=== PATIENT | female | born 1975 | race African-American/Black ===

== ENCOUNTER 2018-02-25 15:16 | Emergency (ER) | payer OTHER, MEDICAID ==
[~2018-02-25] VITALS: Ht 175.3 cm; Wt 74.4 kg
[~2018-02-25 15:16] MED LIST: ADVAIR 500-501 EACH; ADVAIR 500-501 EACH IH; ALBUTEROL INH; ALBUTEROL2.5 MG/32 IH; ALLOPURINOL 30300 M1 PO; AMOXICILLIN 50500 MG PO; AMOXICILLIN875 MG PO; ANTIPYRINE-BENZ10 ML OT; ASPIRIN EC81 M1 PO; ATIVAN0.5 MG; ATIVAN0.5 MG PO; AUGMENTIN 875-1 EACH PO; AUGMENTIN 875875 M1 PO; AUGMENTIN 875875 MG PO; AZITHROMYCIN 2250 MG PO; BENEPROTEIN; BUTALB-APAP-CA1 EACH PO; CALCIUM CARBON260 MG PO; CELEXA; CELEXA40 MG PO; CHERACOL COUGH120 ML PO; CLARITIN10 MG PO; DEPAKOTE250 MG; DIFLUCAN150 M1 PO; DIFLUCAN200 MG PO; FLAGYL500 MG PO; FLONASE 0.05%50 MCG NS; FLORASTOR250 MG PO; GABAPENTIN; GUAIFENESIN WI120 ML PO; HYDROCODON-ACE1 EACH PO; HYDROCODONE-APA1 TA1 PO; IMDUR 30 MG TAB30 M1 PO; IRON159 MG; KEFLEX250 MG PO; KEFLEX500 MG PO; LABETALOL 100100 MG PO; LEVOTHROID150 MCG PO; LEXAPRO; LEXAPRO20 MG PO; LIDODERM 5%1 PATCH TOP; MECLIZINE 25 MG25 M1 PO; MECLIZINE HCL25 M1 PO; MECLIZINE HCL25 MG PO; MEDROLDOSEPACK PO; NEURONTIN 300300 M1 PO; PREDNISONE 20 M20 M1 PO; PREDNISONE 20 M20 MG PO; PREDNISONE50 MG PO; PRILOSEC40 MG PO; PROAIR HFA8.5 GM IH; PROMETHAZINE-D120 ML PO; PROTONIX40 M2 PO; PROVENTIL HFA6.7 G1 INH; PROVERA10 MG PO; SCOPOLAMINE1 EACH TRANSDERM; SINGULAIR; SINGULAIR 10 MG10 M1; TESSALON PERLE100 MG PO; TRAMADOL 50 MG50 MG; TRINATE TABLET1 TAB; TRINATE TABLET1 TAB PO; VENTOLIN HFA 1818 GM INH; VITAMIN B-12500 MCG PO; VITAMIN D3400 UNIT PO; VITAMIN D400 UNI1 PO; XANAX 0.5 MG0.5 M1 PO; ZOCOR 20 MG TAB20 M1 PO; ZOFRAN ODT4 MG PO; ZPAK PO; [UNRECOGNIZED DRUG - CODE] SC
[2018-02-25 15:37] VITALS: BP 123/74
[2018-02-25 15:41] LABS: URINE BILIRUBIN NEGATIVE (Negative); URINE BLOOD 1+ (Negative); URINE CLARITY CLEAR; URINE COLOR YELLOW; URINE GLUCOSE-RANDOM NEGATIVE (Negative); URINE KETONES NEGATIVE (Negative); URINE LEUKOCYTES-REFLEX 1+ (Negative); URINE NITRITE-REFLEX NEGATIVE (Negative); URINE PROTEIN 1+ (Negative); URINE SPECIFIC GRAVITY >= 1.030 (1.005-1.030); URINE UROBILINOGEN 0.2 E.U./dl (0.2-1.0)
[2018-02-25 15:48] LABS: MUCUS >6 Heavy strn/LPF (None Seen); SQUAMOUS >10 Many /LPF (0-3)
[2018-02-25 15:50] LABS: BACTERIA-REFLEX 1-9 Few /HPF (None Seen); URINE WBC-REFLEX >25 Many /HPF (0-5)
[2018-02-25 15:51] LABS: CASTS None Seen /LPF (None Seen); CRYSTALS None Seen /LPF (None Seen); URINE RBC 0-2 Rare /HPF (0-2)
[2018-02-25] MEDS ORDERED: MACROBID 100 M100 M1 PO (15:55)
== END 2018-02-25 15:59 | disposition home or self-care (01) ==
LOC: M.ERS 15:16
PROVIDERS: Nurse Practitioner Family
DX: N39.0 Urinary tract infection, site not specified (principal); R31.9 Hematuria, unspecified; J45.909 Unspecified asthma, uncomplicated; F32.9 Major depressive disorder, single episode, unspecified; F41.9 Anxiety disorder, unspecified; G36.0 Neuromyelitis optica [Devic]; Z98.890 Other specified postprocedural states; Z86.2 Personal history of diseases of the blood and blood-forming organs and certain disorders involving the immune mechanism; Z88.6 Allergy status to analgesic agent; Z88.5 Allergy status to narcotic agent; Z88.2 Allergy status to sulfonamides; Z88.8 Allergy status to other drugs, medicaments and biological substances

== ENCOUNTER 2018-04-04 21:07 | Emergency (ER) | payer OTHER, MEDICAID ==
[~2018-04-04] VITALS: Ht 175.3 cm; Wt 74.8 kg
[~2018-04-04 21:07] MED LIST changes: +MACROBID 100 M100 M1 PO
[2018-04-04] MEDS ORDERED: MEDROLDOSEPACK PO (21:57)
[2018-04-04 22:05] VITALS: BP 107/82
== END 2018-04-04 22:05 | disposition home or self-care (01) ==
LOC: M.ERS 21:07
DX: J02.9 Acute pharyngitis, unspecified (principal); J34.89 Other specified disorders of nose and nasal sinuses; J45.909 Unspecified asthma, uncomplicated; F32.9 Major depressive disorder, single episode, unspecified; F41.9 Anxiety disorder, unspecified; Z86.2 Personal history of diseases of the blood and blood-forming organs and certain disorders involving the immune mechanism; Z88.6 Allergy status to analgesic agent; Z88.5 Allergy status to narcotic agent; Z88.2 Allergy status to sulfonamides; Z88.8 Allergy status to other drugs, medicaments and biological substances

== ENCOUNTER 2018-05-27 23:28 | Emergency (ER) | payer OTHER, MEDICAID ==
[~2018-05-27] VITALS: Ht 175.3 cm; Wt 74.4 kg
[2018-05-27] MEDS ORDERED: SINGULAIR 10 MG10 M1 PO (23:44)
[2018-05-27] MEDS ORDERED: LEXAPRO 10 MG T10 M2 PO (23:44)
[2018-05-28 00:23] LABS: URINE BILIRUBIN NEGATIVE (Negative); URINE BLOOD NEGATIVE (Negative); URINE CLARITY CLEAR; URINE COLOR YELLOW; URINE GLUCOSE-RANDOM NEGATIVE (Negative); URINE KETONES TRACE (Negative); URINE LEUKOCYTES-REFLEX NEGATIVE (Negative); URINE NITRITE-REFLEX NEGATIVE (Negative); URINE PROTEIN TRACE (Negative); URINE SPECIFIC GRAVITY 1.025 (1.005-1.030)
[2018-05-28] MEDS ORDERED: ACETAMINOPHEN-1 EAC1 PO (03:43)
[2018-05-28] MEDS ORDERED: KEFLEX500 M1 PO (03:43)
[2018-05-28 03:51] VITALS: BP 112/68
== END 2018-05-28 03:51 | disposition home or self-care (01) ==
LOC: M.ERS 23:28
PROVIDERS: Emergency Medicine
DX: N83.201 Unspecified ovarian cyst, right side (principal); R39.15 Urgency of urination; J45.909 Unspecified asthma, uncomplicated; F32.9 Major depressive disorder, single episode, unspecified; F41.9 Anxiety disorder, unspecified; Z98.890 Other specified postprocedural states; Z86.2 Personal history of diseases of the blood and blood-forming organs and certain disorders involving the immune mechanism; Z88.5 Allergy status to narcotic agent; Z88.6 Allergy status to analgesic agent; Z88.2 Allergy status to sulfonamides; Z88.8 Allergy status to other drugs, medicaments and biological substances

== ENCOUNTER 2018-09-23 16:36 | Emergency (ER) | payer OTHER, MEDICAID ==
[~2018-09-23] VITALS: Ht 175.3 cm; Wt 72.6 kg
[~2018-09-23 16:36] MED LIST changes: +ACETAMINOPHEN-1 EAC1 PO; +KEFLEX500 M1 PO; +LEXAPRO 10 MG T10 M2 PO; +SINGULAIR 10 MG10 M1 PO
[2018-09-23] MEDS ORDERED: VITAMIN D3400 UNIT PO (16:48)
[2018-09-23] MEDS ORDERED: PRENATAL PLUS1 EAC5 PO (16:48)
[2018-09-23] MEDS ORDERED: ATIVAN0.5 MG PO (16:49)
[2018-09-23] MEDS ORDERED: DEPAKOTE125 MG PO (16:50)
[2018-09-23 17:18] LABS: URINE BILIRUBIN NEGATIVE (Negative); URINE BLOOD NEGATIVE (Negative); URINE CLARITY CLEAR; URINE COLOR YELLOW; URINE GLUCOSE-RANDOM NEGATIVE (Negative); URINE KETONES NEGATIVE (Negative); URINE LEUKOCYTES-REFLEX NEGATIVE (Negative); URINE NITRITE-REFLEX NEGATIVE (Negative); URINE PROTEIN NEGATIVE (Negative); URINE UROBILINOGEN 0.2 E.U./dl (0.2-1.0)
[2018-09-23] MEDS ORDERED: FLAGYL500 M1 PO (17:23)
[2018-09-23 17:32] VITALS: BP 116/67
== END 2018-09-23 17:33 | disposition home or self-care (01) ==
LOC: M.ERS 16:36
PROVIDERS: Nurse Practitioner Family
DX: N76.0 Acute vaginitis (principal); B96.89 Other specified bacterial agents as the cause of diseases classified elsewhere; J45.909 Unspecified asthma, uncomplicated; F32.9 Major depressive disorder, single episode, unspecified; F41.9 Anxiety disorder, unspecified; Z98.890 Other specified postprocedural states; Z86.2 Personal history of diseases of the blood and blood-forming organs and certain disorders involving the immune mechanism; Z88.2 Allergy status to sulfonamides; Z88.6 Allergy status to analgesic agent; Z88.8 Allergy status to other drugs, medicaments and biological substances

== ENCOUNTER 2018-11-16 22:09 | Emergency (ER) | payer OTHER, MEDICAID ==
[~2018-11-16] VITALS: Ht 175.3 cm; Wt 75.8 kg
[~2018-11-16 22:09] MED LIST changes: +DEPAKOTE125 MG PO; +FLAGYL500 M1 PO; +PRENATAL PLUS1 EAC5 PO
[2018-11-16] MEDS ORDERED: IBUPROFEN 800800 M1 PO (22:21)
[2018-11-16 23:24] LABS: ABSOLUTE EOSINOPHILS 0.2 thou/uL (0.0-0.7); ABSOLUTE LYMPHOCYTES 1.3 thou/uL (0.8-5.3); ABSOLUTE MONOCYTES 0.4 thou/uL (0.0-1.2); ABSOLUTE NEUTROPHILS 2.8 thou/uL (1.6-8.1); BASOPHILS 0.4 %; EOSINOPHILS 3.6 %; HEMATOCRIT 41.6 % (37.0-47.0); LYMPHOCYTES 27.1 %; MCH 31.1 pg (26.0-34.0); MCHC 33.6 g/dL (28.0-37.0); MCV 92.4 fL (80.0-100.0); MPV 9.4 fl. (7.2-11.1); NUCLEATED RBCS 0 /100WBC; PLATELET COUNT* 359 thou/uL (150-400); POLYS 59.9 %; RDW-CV 14.1 % (10.5-14.5); WBC 4.8 thou/uL (4.0-11.0)
[2018-11-16 23:43] LABS: CALCIUM 10.3 mg/dL (8.5-10.1); CREATININE 0.8 mg/dL (0.6-1.3); POTASSIUM 3.3 mmol/L (3.5-5.1)
[2018-11-16 23:47] LABS: ALBUMIN 3.5 g/dL (3.4-5.0); TOTAL BILIRUBIN 0.6 mg/dL (<0.1-1.0); TOTAL PROTEIN 7.2 g/dL (6.4-8.2)
[2018-11-17 00:54] VITALS: BP 120/80
== END 2018-11-17 00:55 | disposition short-term general hospital (02) ==
LOC: M.ERS 22:09
PROVIDERS: Emergency Medicine
DX: N99.2 Postprocedural adhesions of vagina (principal); R42 Dizziness and giddiness; J45.909 Unspecified asthma, uncomplicated; F32.9 Major depressive disorder, single episode, unspecified; F41.9 Anxiety disorder, unspecified; Z88.6 Allergy status to analgesic agent; Z88.2 Allergy status to sulfonamides; Z88.8 Allergy status to other drugs, medicaments and biological substances; Z98.890 Other specified postprocedural states; Z86.2 Personal history of diseases of the blood and blood-forming organs and certain disorders involving the immune mechanism

== ENCOUNTER 2019-02-18 14:45 | Emergency (ER) | payer OTHER, MEDICAID ==
[~2019-02-18] VITALS: Ht 175.3 cm; Wt 76.7 kg
[~2019-02-18 14:45] MED LIST changes: +IBUPROFEN 800800 M1 PO
[2019-02-18] MEDS ORDERED: NEURONTIN600 MG PO (14:54)
[2019-02-18 15:44] LABS: ABSOLUTE EOSINOPHILS 0.1 thou/uL (0.0-0.7); ABSOLUTE LYMPHOCYTES 1.2 thou/uL (0.8-5.3); ABSOLUTE MONOCYTES 0.5 thou/uL (0.0-1.2); ABSOLUTE NEUTROPHILS 1.8 thou/uL (1.6-8.1); BASOPHILS 0.6 %; EOSINOPHILS 2.6 %; HEMATOCRIT 38.5 % (37.0-47.0); HEMOGLOBIN 12.7 gm/dL (12.0-15.0); LYMPHOCYTES 33.9 %; MCH 28.9 pg (26.0-34.0); MCHC 32.8 g/dL (28.0-37.0); MCV 87.9 fL (80.0-100.0); MONOCYTES 12.5 %; MPV 9.3 fl. (7.2-11.1); NUCLEATED RBCS 0 /100WBC; PLATELET COUNT* 225 thou/uL (150-400); POLYS 50.4 %; RBC 4.38 mil/uL (4.20-5.00); RDW-CV 16.6 % (10.5-14.5); WBC 3.6 thou/uL (4.0-11.0)
[2019-02-18 15:59] LABS: ALBUMIN 3.4 g/dL (3.4-5.0); CALCIUM 9.9 mg/dL (8.5-10.1); CREATININE 0.8 mg/dL (0.6-1.3); POTASSIUM 3.7 mmol/L (3.5-5.1); TOTAL BILIRUBIN 0.6 mg/dL (<0.1-1.0); TOTAL PROTEIN 7.3 g/dL (6.4-8.2)
[2019-02-18 16:51] LABS: URINE BILIRUBIN NEGATIVE (Negative); URINE BLOOD NEGATIVE (Negative); URINE CLARITY CLEAR; URINE COLOR YELLOW; URINE GLUCOSE-RANDOM NEGATIVE (Negative); URINE KETONES NEGATIVE (Negative); URINE LEUKOCYTES-REFLEX NEGATIVE (Negative); URINE NITRITE-REFLEX NEGATIVE (Negative); URINE PROTEIN NEGATIVE (Negative); URINE UROBILINOGEN 0.2 E.U./dl (0.2-1.0)
[2019-02-18] MEDS ORDERED: BENTYL 20 MG TA20 M1 PO (17:07)
[2019-02-18 17:18] VITALS: BP 127/67
== END 2019-02-18 17:19 | disposition home or self-care (01) ==
LOC: M.ERS 14:45
PROVIDERS: Nurse Practitioner Family
DX: R35.0 Frequency of micturition (principal); R10.31 Right lower quadrant pain; J45.909 Unspecified asthma, uncomplicated; F32.9 Major depressive disorder, single episode, unspecified; F41.9 Anxiety disorder, unspecified; Z88.6 Allergy status to analgesic agent; Z88.4 Allergy status to anesthetic agent; Z88.5 Allergy status to narcotic agent; Z88.2 Allergy status to sulfonamides; Z88.8 Allergy status to other drugs, medicaments and biological substances; Z98.890 Other specified postprocedural states; Z86.2 Personal history of diseases of the blood and blood-forming organs and certain disorders involving the immune mechanism

== ENCOUNTER 2019-03-15 00:17 | Emergency (ER) | payer OTHER, MEDICAID ==
[~2019-03-15] VITALS: Ht 175.3 cm; Wt 72.6 kg
[~2019-03-15 00:17] MED LIST changes: +BENTYL 20 MG TA20 M1 PO; +NEURONTIN600 MG PO
[2019-03-15 00:52] LABS: URINE BILIRUBIN NEGATIVE (Negative); URINE BLOOD NEGATIVE (Negative); URINE CLARITY CLEAR; URINE COLOR YELLOW; URINE GLUCOSE-RANDOM NEGATIVE (Negative); URINE KETONES TRACE (Negative); URINE LEUKOCYTES-REFLEX NEGATIVE (Negative); URINE NITRITE-REFLEX NEGATIVE (Negative); URINE PROTEIN TRACE (Negative); URINE SPECIFIC GRAVITY >= 1.030 (1.005-1.030); URINE UROBILINOGEN 0.2 E.U./dl (0.2-1.0)
[2019-03-15] MEDS ORDERED: DIFLUCAN200 MG PO (01:01)
[2019-03-15 01:14] VITALS: BP 116/69
== END 2019-03-15 01:14 | disposition home or self-care (01) ==
LOC: M.ERS 00:17
PROVIDERS: Emergency Medicine
DX: B37.3 Candidiasis of vulva and vagina (principal); J45.909 Unspecified asthma, uncomplicated; F32.9 Major depressive disorder, single episode, unspecified; F41.9 Anxiety disorder, unspecified; Z98.890 Other specified postprocedural states; Z88.2 Allergy status to sulfonamides; Z88.5 Allergy status to narcotic agent; Z88.8 Allergy status to other drugs, medicaments and biological substances

== ENCOUNTER 2019-07-15 10:44 | Emergency (ER) | payer OTHER, MEDICAID ==
[~2019-07-15] VITALS: Ht 175.3 cm; Wt 77.1 kg
[~2019-07-15 10:44] MED LIST changes: +DEPAKOTE 250MG250 M1 PO; -DEPAKOTE125 MG PO; +IBUPROFEN 600600 M1 PO; -IBUPROFEN 800800 M1 PO; -NEURONTIN600 MG PO
[2019-07-15 10:50] VITALS: BP 128/85
[2019-07-15] MEDS ORDERED: PREPLUS CA-FE1 EACH PO (11:02)
[2019-07-15] MEDS ORDERED: PREDNISONE 10 M10 MG PO (11:03)
== END 2019-07-15 11:24 | disposition home or self-care (01) ==
LOC: M.ERS 10:44
DX: G43.909 Migraine, unspecified, not intractable, without status migrainosus (principal); J30.2 Other seasonal allergic rhinitis; F32.9 Major depressive disorder, single episode, unspecified; F41.9 Anxiety disorder, unspecified; Z88.6 Allergy status to analgesic agent; Z88.4 Allergy status to anesthetic agent; Z88.5 Allergy status to narcotic agent; Z88.2 Allergy status to sulfonamides; Z98.890 Other specified postprocedural states; Z86.2 Personal history of diseases of the blood and blood-forming organs and certain disorders involving the immune mechanism

== ENCOUNTER 2019-07-19 09:09 | Emergency (ER) | payer OTHER, MEDICAID ==
[~2019-07-19] VITALS: Ht 175.3 cm; Wt 77.1 kg
[~2019-07-19 09:09] MED LIST changes: +PREDNISONE 10 M10 MG PO; +PREPLUS CA-FE1 EACH PO
[2019-07-19 09:26] LABS: URINE BILIRUBIN NEGATIVE (Negative); URINE BLOOD TRACE (Negative); URINE CLARITY CLEAR; URINE COLOR YELLOW; URINE GLUCOSE-RANDOM NEGATIVE (Negative); URINE KETONES TRACE (Negative); URINE LEUKOCYTES-REFLEX NEGATIVE (Negative); URINE NITRITE-REFLEX NEGATIVE (Negative); URINE PROTEIN TRACE (Negative); URINE SPECIFIC GRAVITY >= 1.030 (1.005-1.030); URINE UROBILINOGEN 0.2 E.U./dl (0.2-1.0)
[2019-07-19 09:37] VITALS: BP 137/83
[2019-07-19] MEDS ORDERED: MACROBID 100 M100 M1 PO (09:37)
== END 2019-07-19 09:37 | disposition home or self-care (01) ==
LOC: M.ERS 09:09
PROVIDERS: Emergency Medicine
DX: R30.0 Dysuria (principal); R10.30 Lower abdominal pain, unspecified; J45.909 Unspecified asthma, uncomplicated; F32.9 Major depressive disorder, single episode, unspecified; F41.9 Anxiety disorder, unspecified; G43.909 Migraine, unspecified, not intractable, without status migrainosus; Z98.890 Other specified postprocedural states; Z88.6 Allergy status to analgesic agent; Z88.2 Allergy status to sulfonamides; Z88.5 Allergy status to narcotic agent; Z88.8 Allergy status to other drugs, medicaments and biological substances

== ENCOUNTER 2021-10-08 23:10 | Emergency (ER) | payer OTHER, MEDICAID ==
[~2021-10-08] VITALS: Ht 175.3 cm; Wt 77.1 kg
[2021-10-09 02:01] LABS: HEMATOCRIT 42.9 % (37.0-47.0); HEMOGLOBIN 14.5 gm/dL (12.0-15.0); MCH 30.3 pg (26.0-34.0); MCHC 33.8 g/dL (28.0-37.0); MCV 89.6 fL (80.0-100.0); MPV 9.1 fl. (7.2-11.1); RBC 4.79 mil/uL (4.20-5.00); RDW-CV 13.5 % (10.5-14.5); WBC 4.1 thou/uL (4.0-11.0)
[2021-10-09 02:07] LABS: CALCIUM 10.4 mg/dL (8.5-10.1); CREATININE 0.8 mg/dL (0.6-1.3); POTASSIUM 3.4 mmol/L (3.5-5.1)
[2021-10-09 02:36] LABS: INFLUENZA A ANTIGEN Negative (Negative); INFLUENZA B ANTIGEN Negative (Negative)
[2021-10-09 02:44] LABS: URINE BILIRUBIN NEGATIVE (Negative); URINE BLOOD NEGATIVE (Negative); URINE CLARITY CLEAR; URINE COLOR YELLOW; URINE GLUCOSE-RANDOM NEGATIVE (Negative); URINE KETONES NEGATIVE (Negative); URINE LEUKOCYTES-REFLEX NEGATIVE (Negative); URINE NITRITE-REFLEX NEGATIVE (Negative); URINE PROTEIN NEGATIVE (Negative); URINE SPECIFIC GRAVITY >= 1.030 (1.005-1.030); URINE UROBILINOGEN 0.2 E.U./dl (0.2-1.0)
[2021-10-09] MEDS ORDERED: IBUPROFEN 800800 MG PO (03:02)
[2021-10-09 03:06] VITALS: BP 127/76
--- NOTE | 2021-10-09 11:49 | EKG ---
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: : 1975 Requested By: Clementina Atkinson Order Number: [id number] MD: Chidi Harris Measurements Intervals [place] Rate: 64 P: 76 [place]: 169 QRS: -36 QRSD: 110 T: 57 QT: 424 QTc: 438 Interpretive Statements Sinus rhythm Left axis deviation Compared to ECG 11/17/2014 00:22:46 Left-axis deviation now present T-wave abnormality no longer present Electronically Signed On 10-09-2021 11:49:15 [employer] by Chidi Harris [email or web address] <ELECTRONICALLY SIGNED> By: Chidi Harris MD, FACC 10/09/21 1149 0041 0041 Chidi Harris MD, FAC /EPI
== END 2021-10-09 03:10 | disposition home or self-care (01) ==
LOC: M.ERS 23:10
PROVIDERS: Personal Emergency Response Attendant
DX: M79.604 Pain in right leg (principal); Z20.822 Contact with and (suspected) exposure to COVID-19; R42 Dizziness and giddiness; J45.909 Unspecified asthma, uncomplicated; F32.9 Major depressive disorder, single episode, unspecified; F41.9 Anxiety disorder, unspecified; G43.909 Migraine, unspecified, not intractable, without status migrainosus; Z90.711 Acquired absence of uterus with remaining cervical stump; Z98.51 Tubal ligation status; Z79.899 Other long term (current) drug therapy; Z88.6 Allergy status to analgesic agent; Z88.5 Allergy status to narcotic agent; Z88.2 Allergy status to sulfonamides